=== PATIENT | male | born 1945 | race Native Hawaiian/Other Pacific Islander ===

== ENCOUNTER 2016-10-26 06:06 | Emergency (ER) | payer OTHER ==
[~2016-10-26] VITALS: Ht 180.3 cm; Wt 119.8 kg
[2016-10-26 07:30] VITALS: BP 123/95; TEMP 98
== END 2016-10-26 07:30 | disposition home or self-care (01) ==
LOC: ED 06:06
DX: S00.83XA Contusion of other part of head, initial encounter (principal); W06.XXXA Fall from bed, initial encounter; Y92.098 Other place in other non-institutional residence as the place of occurrence of the external cause
CPT/HCPCS: 99283

== ENCOUNTER 2020-04-15 14:53 | Outpatient (CLI) | payer OTHER | END 2020-04-15 21:35 | disposition home or self-care (01) | LOC: LABW 14:53 | DX: Z79.899 Other long term (current) drug therapy (principal); R06.02 Shortness of breath | CPT/HCPCS: 36415; 83880 ==